=== PATIENT | male | born 1990 | race Caucasian/White ===

== ENCOUNTER 2016-09-03 23:19 | Emergency (ER) | payer BC, OTHER ==
[2016-09-04] MEDS ORDERED: Tetan/Diph/Pertus SYR(Tdap)* 0.5 ML SYR(BOOSTRIX) use SYR IM ONE (00:01)
[2016-09-04] MEDS ORDERED: Morphine INJ* 4 MG/ML 1 ML SYRINGE IV ONE ×2 (00:01→01:36)
[2016-09-04 00:13] LABS: Hematocrit 48 % (42-52); Hemoglobin 16.2 g/dl (14.0-18.0); Mean Corpuscular HGB Conc 34 g/dl (31-36); Mean Corpuscular Hemoglobin 28 pg (27-31); Mean Corpuscular Volume 82 fL (80-94); Mean Platelet Volume 9 um3 (7.4-10.4); Red Cell Distribution Width 13 % (10.5-15); White Blood Count 14.9 10^3/ul (3.5-10.8)
[2016-09-04] MEDS ORDERED: Ondansetron INJ* 2 MG/ML VIAL IV ONE ×2 (00:15→01:36)
[2016-09-04] MEDS ORDERED: Ondansetron INJ* 2 MG/ML VIAL ONE (00:15)
[2016-09-04 00:21] LABS: Albumin 4.7 g/dL (3.2-5.2); BUN/Creatinine Ratio 15.2 (8-20); Calcium 9.7 mg/dL (8.6-10.3); EGFR African American 91.3 (>60); Globulin 2.8 g/dL (2-4); Potassium 3.4 mmol/L (3.5-5.0); Total Bilirubin 0.4 mg/dL (0.2-1.0); Total Protein 7.5 g/dL (6.4-8.9)
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
[2016-09-04 03:23] VITALS: BP 127/70
== END 2016-09-04 01:45 | disposition short-term general hospital (02) ==
LOC: ED 23:19
DX: S99.912A Unspecified injury of left ankle, initial encounter (principal); S99.911A Unspecified injury of right ankle, initial encounter; S39.92XA Unspecified injury of lower back, initial encounter; S69.92XA Unspecified injury of left wrist, hand and finger(s), initial encounter; S69.91XA Unspecified injury of right wrist, hand and finger(s), initial encounter; S39.91XA Unspecified injury of abdomen, initial encounter; V29.9XXA Motorcycle rider (driver) (passenger) injured in unspecified traffic accident, initial encounter; Y92.9 Unspecified place or not applicable
CPT/HCPCS: 36415; 80053; 85025; 90715; 96360; 96374; 96375; 96376; 99285; J2270; J2405

== ENCOUNTER 2017-06-29 07:07 | Emergency (ER) | payer BC, OTHER ==
[2017-06-29 07:20] VITALS: BP 137/90
--- NOTE | 2017-06-29 08:03 | UC ---
Respiratory Complaint HPI - HPI Summary HPI Summary: 26 yo male presents with cough, sinus pain/pressure/congestion, fatigue, and body aches for the last 4 days. Has been taking ibuprofen and claritin with no relief. Denies fever, chills, SOB, chest pain, abdominal pain, n/v - History of Current Complaint Chief Complaint: UCRespiratory Stated Complaint: ACHEY,CONGESTED Time Seen by Provider: 06/29/17 08:02 Hx Obtained From: Patient Severity Initially: Mild Severity Currently: Moderate Pain Intensity: 6 Pain Scale Used: 0-10 Numeric Character: Cough: Nonproductive - Allergies/Home Medications Allergies/Adverse Reactions: Allergies Allergy/AdvReac Type Severity Reaction Status Date / Time shrimp Allergy Itching Uncoded 06/29/17 07:21 Home Medications: Home Medications Acetaminophen TAB* [Tylenol TAB*] 650 mg PO Q4H PRN 06/29/17 [History Confirmed 06/29/17] D-Methorphan/PE/Acetaminophen [Gnp Day Time Cold/Flu Rel] 1 liq PO DAILY PRN [History Confirmed 06/29/17] PMH/Surg Hx/FS Hx/Imm Hx - Additional Past Medical History Additional PMH: None Previously Healthy: Yes - Surgical History Surgical History: None - Family History Known Family History: Negative: Cardiac Disease, Hypertension, Diabetes - Social History Occupation: Employed Full-time Lives: With Family Alcohol Use: Occasionally Substance Use Type: None Smoking Status (MU): Never Smoked Tobacco - Immunization History Most Recent Tetanus Shot: 2017 Review of Systems Constitutional: Fatigue Skin: Negative Eyes: Negative ENT: Nasal Discharge, Sinus Congestion, Sinus Pain/Tenderness Respiratory: Cough Cardiovascular: Negative Gastrointestinal: Negative Neurovascular: Negative Neurological: Negative Psychological: Negative All Other Systems Reviewed And Are Negative: Yes Physical Exam - Summary Physical Exam Summary: GENERAL: NAD. WDWN. No pain distress. SKIN: No rashes, sores, lesions, or open wounds. HEENT: Head: AT/NC Eyes: EOM intact. Conjunctiva clear without inflammation or discharge. Ears: Hearing grossly normal. TMs intact, no bulging, erythema, or edema. Nose: Nasal mucosa pink and moist. NTTP maxillary and frontal sinus. Throat: Posterior oropharynx without exudates, erythema, or tonsillar enlargement. Uvula midline. NECK: Supple. Nontender. No lymphadenopathy. CHEST: CTAB. No r/r/w. No accessory muscle use. Breathing comfortably and in no distress. CV: RRR. Without m/r/g. Pulses intact. Brisk cap refill. NEURO: Alert. CN II-XII grossly intact. PSYCH: Age appropriate behavior. Triage Information Reviewed: Yes Vital Signs: Initial Vital Signs Temp 98.3 F 06/29/17 07:16 Pulse 82 06/29/17 07:16 Resp 16 06/29/17 07:16 BP 137/90 06/29/17 07:16 Pulse Ox 97 06/29/17 07:16 Diagnostic Evaluation - Laboratory O2 Sat by Pulse Oximetry: 97 Respiratory Course/Dx - Course Course Of Treatment: Suspect viral illness vs seasonal allergies. Pt is adamantly requesting a zpak - as he works nights and "doesn't have time to be sick" or to return if his symptoms dont improve. - Differential Dx/Diagnosis Provider Diagnoses: Viral illness Discharge - Sign-Out/Discharge Documenting (check all that apply): Discharge/Admit/Transfer - Discharge Plan Condition: Stable Disposition: HOME Prescriptions: Azithromycin TAB* [Zithromax TAB (Z-TOMASA) 250 mg #6 tabs] 2 tab PO .TODAY, THEN 1 DAILY #1 tomasa Patient Education Materials: Sinusitis (ED) Referrals: Myke Persaud MD [Primary Care Provider] - Additional Instructions: If you develop a fever, shortness of breath, chest pain, new or worsening symptoms - please call your PCP or go to the ED. Your blood pressure was high at todays visit. Please see your primary provider within 4 weeks for recheck and re-evaluation. - Billing Disposition and Condition Condition: STABLE Disposition: HOME
== END 2017-06-29 08:22 | disposition home or self-care (01) ==
LOC: UCEAST 07:07
DX: B34.9 Viral infection, unspecified (principal); R05 Cough; R53.83 Other fatigue; R09.81 Nasal congestion; R52 Pain, unspecified; Z91.013 Allergy to seafood
CPT/HCPCS: 99212; G0463